=== PATIENT | female | born 1960 | race African-American/Black ===

== ENCOUNTER 2022-02-14 10:58 | Emergency (ER) | payer OTHER ==
[~2022-02-14] VITALS: Ht 162.6 cm; Wt 122.0 kg
[2022-02-14] MEDS ORDERED: ACETAMINOPHEN ES 500 MG TABLET ONE ×2 (11:17→11:18)
--- NOTE | 2022-02-14 11:22 | NUR ---
PER PATIENT, HOLD OFF ON THE TYLENOL FOR NOW SHE FEELS NAUSEAUS. OFFERED ANTI-NAUSEA MEDICATION BUT NOT NEEDED AT THIS TIME PER PATIENT.
--- NOTE | 2022-02-14 11:43 | NUR ---
PATIENT TAKEN TO RADIOLOGY VIA GURNEY.
[2022-02-14] MEDS: ACETAMINOPHEN ES 500 MG TABLET PO ONE (12:23)
--- NOTE | 2022-02-14 12:23 | NUR ---
PATIENT RETURNED FROM RADIOLOGY. TYLENOL PO GIVEN ORDERED.
[2022-02-14] MEDS ORDERED: ONDANSETRON 4 MG TAB.RAPDIS ONE (12:27)
[2022-02-14] MEDS: ONDANSETRON 4 MG TAB.RAPDIS SL ONE (12:28)
--- NOTE | 2022-02-14 12:31 | NUR ---
PATIENT COMPLAINED OF NAUSEA. DR. BROWN MADE AWARE W/ ORDER FOR ZOFRAN 4MG PO SL, ORDER VERIFIED W/ MD. ADMINISTERED TO PATIENT INDICATED.
--- NOTE | 2022-02-14 12:36 | NUR ---
[facility] (SISTER) [phone]
--- NOTE | 2022-02-14 13:09 | NUR ---
Patient discharged to home in stable condition. Written and verbal after care instructions given. Patient verbalizes understanding of instruction.
[2022-02-14 13:10] VITALS: BP 126/72
== END 2022-02-14 13:10 | disposition home or self-care (01) ==
LOC: ER 11:00
DX: S89.91XA Unspecified injury of right lower leg, initial encounter (principal); E78.5 Hyperlipidemia, unspecified; Z88.8 Allergy status to other drugs, medicaments and biological substances; W01.0XXA Fall on same level from slipping, tripping and stumbling without subsequent striking against object, initial encounter; Y93.89 Activity, other specified; Y92.89 Other specified places as the place of occurrence of the external cause; Y99.8 Other external cause status
CPT/HCPCS: 70450; 72125; 73564; 73590; 99284; Q0162